=== PATIENT | female | born 1945 | race Caucasian/White ===

== ENCOUNTER 2016-12-15 10:27 | Emergency (ER) | payer MEDICARE ==
--- NOTE | 2016-12-15 11:48 | UC ---
Respiratory Complaint HPI - HPI Summary HPI Summary: Was dx with COPD in the last 1.5 months, had "asthmatic bronchitis" early Nov, then a head cold at the end of Nov, then approx 10 days ago started getting an awful cough "from my toenails up" with severe weakness and shortness of breath with exertion. Had AL last year, pt reports it resulted from overdose on medication. also has faulty heart valve, not sure which one. Gets an echocardiogram every year. 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 Denies wheezing or productive cough. Was given prescription for "one of the emycins that starts with c" early in Nov with refills. Took it then, put herself back on it late Nov, and has been taking again in recent days. - History of Current Complaint Stated Complaint: RESPIRATORY COMPLAINT Time Seen by Provider: 12/15/16 11:13 Hx Obtained From: Patient ?: No Onset/Duration: Gradual Onset, Lasting Days Timing: Constant Severity Initially: Mild Severity Currently: Moderate Character: Cough: Nonproductive Aggravating Factors: Exertion Alleviating Factors: Nothing Associated Signs And Symptoms: Positive: Chills - woke drenched in sweat yesterday morning, Wheezing - occasionally. Negative: Nasal Congestion, Hoarseness - Risk Factors Cardiac Risk Factors: Hypertension, Smoking, Prior AL, CAD Pseudomonas Risk Factors: Chronic Lung Disease - Allergies/Home Medications Allergies/Adverse Reactions: Allergies Allergy/AdvReac Type Severity Reaction Status Date / Time Adhesive Tape Allergy Intermediate RASH,SKIN Verified 12/15/16 11:44 PEELS Prednisone AdvReac Intermediate HYPER, Verified 12/15/16 11:44 INSOMNIA Tetracycline AdvReac Intermediate Nausea Verified 12/15/16 11:44 Home Medications: Home Medications Acetaminop/Codeine 30 MG TAB* [Tylenol/Codeine 30 MG TAB*] 1 - 2 tab PO Q6H PRN 12/15/16 [History Confirmed 12/15/16] Aspirin [Aspirin Adult Low Dose] 81 mg PO DAILY 12/15/16 [History Confirmed ] Cyclobenzaprine TAB* [Flexeril TAB*] 10 mg PO TID PRN 12/15/16 [History Confirmed 12/15/16] Digoxin TAB* [Lanoxin TAB*] 0.125 mg PO DAILY 12/15/16 [History Confirmed ] Enalapril TAB* [Vasotec TAB*] 5 mg PO DAILY 12/15/16 [History Confirmed 12/15/16 ] Esomeprazole Magnesium [Nexium 24Hr] 20 mg PO DAILY 12/15/16 [History Confirmed 12/15/16] Furosemide TAB* [Lasix TAB*] 20 mg PO DAILY 12/15/16 [History Confirmed 12/15/16 ] Levothyroxine TAB* [Synthroid TAB*] 25 mcg PO DAILY 12/15/16 [History Confirmed 12/15/16] Loratadine [Claritin] 10 mg PO DAILY 12/15/16 [History Confirmed 12/15/16] Meloxicam 7.5 mg PO DAILY 12/15/16 [History Confirmed 12/15/16] Montelukast Sodium TAB* [Singulair TAB*] 10 mg PO DAILY 12/15/16 [History Confirmed 12/15/16] Sertraline* [Zoloft*] 100 mg PO DAILY 12/15/16 [History Confirmed 12/15/16] busPIRone TAB* [Buspar TAB*] 10 mg PO DAILY 12/15/16 [History Confirmed 12/15/16 ] PMH/Surg Hx/FS Hx/Imm Hx Cardiovascular History Of: Reports: Cardiac Disorders, Hypertension, Myocardial Infarction Respiratory History Of: Reports: COPD, Asthma - Family History Known Family History: Positive: Hypertension - Social History Occupation: Retired Lives: Alone Alcohol Use: Rare Substance Use Type: None Have You Smoked in the Last Year: Yes When Did the Patient Quit Smoking/Using Tobacco: 1 week ago Review of Systems Constitutional: Chills, Fatigue Skin: Negative Eyes: Negative ENT: Negative Respiratory: Shortness Of Breath, Cough Cardiovascular: Negative Gastrointestinal: Negative Genitourinary: Negative Motor: Negative Neurovascular: Negative Musculoskeletal: Negative Neurological: Negative Psychological: Negative All Other Systems Reviewed And Are Negative: Yes Physical Exam Triage Information Reviewed: Yes Appearance: Well-Appearing, No Pain Distress, Thin Vital Signs Reviewed: Yes Eye Exam: Normal Eyes: Positive: Conjunctiva Clear ENT Exam: Normal ENT: Positive: Normal ENT inspection, Hearing grossly normal, Pharynx normal, TMs normal Dental Exam: Normal Neck exam: Normal Neck: Positive: Supple, Nontender, No Lymphadenopathy Respiratory: Positive: No respiratory distress, No accessory muscle use - at rest, Rhonchi - minimal, Wheezing - minimal Cardiovascular Exam: Normal Cardiovascular: Positive: RRR, No Murmur Musculoskeletal Exam: Normal Neurological Exam: Normal Psychological Exam: Normal Skin Exam: Normal Respiratory Course/Dx - Course Course Of Treatment: Explained risk for life-threatening problems such as AL, CHF, digoxin toxicity, and PE, but pt is refusing to go to the ED. Would prefer to see PCP next week. Encouraged pt to call 911 if she develops chest pain, fainting, vomiting, or any other severe symptoms. Due to recent likely use of clarithromycin and her digoxin use, I explained that she may have digoxin toxicity. Pt understands and will call her PCP office first thing Saturday morning to ask if they can add a dig level onto her routine bloodwork. - Differential Dx/Diagnosis Provider Diagnoses: shortness of breath. possible dignoxin toxicity due to medication interaction Discharge - Discharge Plan Condition: Stable Disposition: AGAINST MEDICAL ADVICE Patient Education Materials: Digoxin Toxicity (ED), Dyspnea (ED) Referrals: Princess White MD [Primary Care Provider] - 2 Days Additional Instructions: Stop taking the clarithromycin altogether. Since you are out of your digoxin, you should wait until you talk with your primary care provider on Saturday before refilling and restarting that. I suspect your weakness is from too much digoxin. I cannot say for certain whether you are having a life-threatening problem right now because you have elected to not go to the emergency department. If you have any worsening whatsoever, especially chest pain, fainting, or worsening trouble breathing, please dial 911.
[2016-12-15 11:56] VITALS: BP 122/62
== END 2016-12-15 12:32 | disposition left against medical advice (07) ==
LOC: UCCORT 10:27
DX: R06.02 Shortness of breath (principal); I10 Essential (primary) hypertension; J44.9 Chronic obstructive pulmonary disease, unspecified; F17.210 Nicotine dependence, cigarettes, uncomplicated
CPT/HCPCS: 93005; 99212; G0463